=== PATIENT | female | born 1990 | race African-American/Black ===

== ENCOUNTER 2016-09-07 10:22 | Inpatient (IN) ==
[2016-09-07] MEDS ORDERED: ALUM/MAG/SIMETH/LIDO VISC 1:1 30 ML BOTTLE PO STA (11:28)
[2016-09-07] MEDS ORDERED: PANTOPRAZOLE 40 MG VIAL IV STA (11:28)
[2016-09-07] MEDS ORDERED: ONDANSETRON 4 MG/2 ML VIAL IV STA (11:28)
[2016-09-07] MEDS ORDERED: SODIUM CHLORIDE 0.9% 500 ML IV STA (11:28)
--- NOTE | 2016-09-07 11:28 | Emergency Department Note ---
Kamran Torres Meredith, am scribing for, and in the presence of, Ricky An MD 11:11. Juve Torres Charles R, MD, personally performed the services described in this documentation, ascribed by Fabiola Andrew in my presence, and it is both accurate and complete . Arrival - Arrival Chief Complaint: Abdominal / Flank Pain Stated Complaint: CHEST PAINS, STOMACH PAINS, NAUSEA ED Nursing Triage Note: Pt states that she is having upper abd pain and states that she is having chest pain with deep breath - pt states that she has been seen and treated in ER at [facility] for same c/o and had gallbladder US and HiDA scan end of Aug - pt states that she has decreased gallbladder function - pt states that she saw Dr Banegas yesterday and states that she was told that she needed a scope before she had her GB out Mode of Arrival: Ambulatory Limitations: No Limitations Source: Patient, Old Records Reviewed, RN Notes Reviewed Time Seen by Provider: 09/07/16 11:00 - History of Present Illness HPI Narrative: Pt is a 26 y/o black female reporting to the ED with c/o upper abdominal pain and chest pain with deep breaths. She has been seen and treated in the ER at [facility] for the same complaint. Pt had a gallbladder ultrasound and HiDA scan at the end of August. They told her she has decreased gallbladder function. Pt saw Dr. Banegas yesterday and was told she needs to have a scope before she can have her gallbladder taken out. She was also diagnosed with H. Pylori and was put on ABX for 2 weeks. The H.Pylori has resolved. She also has a history. Pt states her pain is worse after meals and when laying flat. She has not taken any OTC medications. Pt has additional history of HTN. Onset (ago): day(s) Date of Last Menstrual Period: 3 weeks Allergies/Adverse Reactions: Allergies Allergy/AdvReac Type Severity Reaction Status Date / Time Penicillins Allergy Severe ANAPHYLAXIS, Verified 12/24/15 12:03 RASH, ITCHING Home Medications: Home Medications Medication Instructions Recorded Confirmed Type Labetalol Tab [Trandate Tab] 100 mg PO BID 12/24/15 09/07/16 History Review of System - Review of System 12 point system: reviewed and no additional remarkable complaints except as stated - Review of System Cardiovascular: Present: as per HPI, chest pain (with deep breath) Gastrointestinal: Present: as per HPI, abdominal pain Medical,Surgical,& Family Hx - Medical History Cardio: History of: Hypertension Neurology: No history of: Seizures HEENT: History of: HEENT Problems (TROUBLE BREATHING FOR 1 MONTH) Respiratory: History of: Respiratory Problems (PT STATES TROUBLE BREATHING.) Musculoskeletal: History of: Musculoskeletal Problems Reproductive: History of: Complication (MISCARRIAGE) - Surgical History Reproductive Surgeries: Surgical HX of;: Breast Surgery (Bilateral reduction), Dilation and Curettage Orthopedic Surgeries: Surgical HX of;: Orthopedic Surgery (LEFT LEG TIBIA AND FIBIA SX 2012) - Family History Family History: Reports;: Family Cancer (Father (stomach); G'father (prostate)) , Family Diabetes, Family Heart Disease (G'father), Family Hypertension, Family Stroke (mother) - Social History Smoking Status: Never smoker Frequency of Alcohol Use: None Type of Drug Use: None Exam Vital Signs: Vital Signs Temperature 98.1 F 09/07/16 10:42 Pulse Rate 68 09/07/16 10:42 Respiratory Rate 20 09/07/16 10:42 Blood Pressure 124/94 09/07/16 10:42 O2 Sat by Pulse Oximetry 97 09/07/16 10:42 - General General appearance: alert, in no apparent distress - Head Head exam: Present: atraumatic, normocephalic - Eye Eye exam: Present: normal appearance, PERRL, EOMI - ENT ENT exam: Present: mucous membranes moist, normal external ear exam - Neck Neck exam: Present: full ROM, trachea midline. Absent: tenderness, meningismus , lymphadenopathy, thyromegaly - Chest Chest inspection: Present: symmetric chest wall rise. Absent: tenderness, rash - Respiratory Respiratory exam: Present: normal lung sounds bilaterally. Absent: respiratory distress - Cardiovascular Cardiovascular exam: Present: regular rate, normal rhythm, normal heart sounds. Absent: murmur, rubs, gallop - Abdominal Exam Abdominal exam: Present: soft, tenderness (epigastric), normal bowel sounds. Absent: distention - Extremities Exam Extremities exam: Present: full ROM, normal capillary refill. Absent: tenderness, pedal edema, calf tenderness - Back Exam Back exam: Present: full ROM. Absent: tenderness - Neurological Exam Neurological exam: Present: alert, oriented X3, CN II-XII intact. Absent: motor sensory deficit - Psychiatric Psychiatric exam: Present: normal affect, normal mood - Skin Skin exam: Present: warm, dry, intact, normal color Course - Consultations Consultation #1: Consult to general surgery for the CT findings he said to admit to the hospitalist service and consult him and possibly CUSTOMER SERVICE DISPATCHER for differentiate between appendicitis and PID Time: 14:43 Results - Labs CBC & BMP: 09/07/16 11:41 09/07/16 11:41 Lab Results: I have reviewed the patients labs Labs: Laboratory Tests 09/07/16 11:41 WBC 4.3 RBC 4.64 Hgb 13.9 Hct 40.4 Plt Count 265 Laboratory Tests 09/07/16 11:41 Urine Test Negative Laboratory Tests 09/07/16 11:41 Urine pH 6.0 Ur Specific [place] 1.017 Urine Nitrate Positive H Urine Urobilinogen < 2.0 H Urine RBC <1 Urine WBC 1 Urine Bacteria Moderate Hyaline Casts 1 Urine Mucus Few Laboratory Tests 09/07/16 11:41 Sodium 142 Potassium 4.0 Chloride 109 H Carbon Dioxide 24 BUN 6 L Creatinine 0.60 Total Bilirubin 1.30 H Troponin I < 0.015 Globulin 3.7 H Albumin/Globulin Ratio 0.9 L - Diagnostic Findings Procedure: Abdominal x-ray: report reviewed by me (Negative bowel gas pattern. ) , CT Abdomen and Pelvis: report reviewed by me ( Trace amount of inflammation of the lower right paracolic gutter lateral to the cecum and tiny amount of fluid in alexa cul-de-sac noted. Subcentimeter right lower quadrant mesenteric lymph nodes present as well. However, the appendix is normal by CT. Favor PID although differential included typhilitis, focal colitis, mesenteric adenitis, or very early acute appendicitis. ) Disposition Clinical Impression: Abdominal pain, UTI (urinary tract infection), GERD (gastroesophageal reflux disease), PID (acute pelvic inflammatory disease), Pelvic pain, Early appendicitis Case discussed with: patient Condition: Stable Time of Disposition: 14:44
[2016-09-07] MEDS ORDERED: PANTOPRAZOLE 40 MG VIAL IV ONE (11:48)
[2016-09-07] MEDS ORDERED: ALUM/MAG/SIMETH/LIDO VISC 1:1 30 ML BOTTLE PO ONE (11:48)
[2016-09-07] MEDS ORDERED: ONDANSETRON 4 MG/2 ML VIAL ONE (11:48)
[2016-09-07 11:55] LABS: Basophils % 0.5 % (0.0-0.8); Eosinophils % 0.2 % (0.00-10.9); Hematocrit 40.4 VOL% (35.7-47.0); Hemoglobin 13.9 GM/DL (12.0-16.0); Immature Granulocytes % 0.2 %; Immature Granulocytes Absolute 0.01 #; Lymphocytes # 2.1 10*3/uL (1.4-4.0); Lymphocytes % 49.1 % (21.3-54.2); Mean Corpuscular HGB Conc 34.4 GM/DL (32-36); Mean Corpuscular Hemoglobin 30 PG (27-34); Mean Corpuscular Volume 87.1 FL (87-102); Mean Platelet Volume 10.7 FL (9.6-12.0); Monocytes # 0.3 10*3/uL (0.11-0.8); Monocytes % 7.7 % (1.7-12.7); Neutrophils # 1.8 10*3/uL (1.4-7.4); Neutrophils % 42.3 % (38.7-73.9); Platelet Count 265 T/CUMM (130-400); Red Blood Count 4.64 MC/CUMM (3.8-5.5); Red Cell Distribution Width 11.9 % (9.3-17.3); White Blood Count 4.3 T/CUMM (4-12)
[2016-09-07 12:17] LABS: Apearance,Urine Slightly Hazy (Clear); Bacteria,Urine Moderate /HPF (Few); Bilirubin,Urine Negative (Negative); Blood, Urine Negative (Negative); Glucose,Urine (UA) Negative (Negative); Hyaline Casts,Urine 1 /LPF (0-3); Ketones,Urine Negative (Negative); Mucus,Urine Few /LPF (Occasional); Nitrite,Urine Positive (Negative); Protein,Urine Negative; RBC,Urine <1 /HPF (0-4); Squamous Epithelial Cell,Urine Occasional /HPF (0-10); Urine Color Yellow (Yellow); Urine Specific Gravity 1.017 (1.001-1.035); Urine Urobilinogen < 2.0 EU/DL (0.2-1.0); WBC,Urine 1 /HPF (0-6)
[2016-09-07 12:24] LABS: Alanine Aminotransferase 19 U/L (13-56); Albumin 3.5 G/DL (3.4-5.0); Alkaline Phosphatase 57 U/L (45-117); Amylase 53 U/L (25-115); Aspartate Amino Transferase 16 U/L (0-37); Blood Urea Nitrogen 6 MG/DL (7-18); Calcium 8.7 MG/DL (8.5-10.1); Glucose 85 MG/DL (74-106); Magnesium 1.8 MG/DL (1.8-2.4); Osmolality,Calculated 279.1 MOS/KG (273-304); Sodium 142 MMOL/L (136-145); Total Protein 7.2 G/DL (6.4-8.3); Troponin I Only < 0.015 NG/ML (0.00-0.045)
[2016-09-07] MEDS ORDERED: LEVOFLOXACIN INJ 500 MG in PREMIX 1 EACH IV STA (12:26)
--- NOTE | 2016-09-07 12:38 | CT Report ---
CT abdomen pelvis wo con Indication: Pelvic and abdominal pain. CT ABDOMEN AND PELVIS WITHOUT CONTRAST DLP: 522 mGy*cm Comparison: None. Technique: Axial noncontrast CT images of the abdomen and pelvis were obtained. Abdomen: No urolithiasis. No urinary obstruction. Unenhanced kidneys appear unremarkable. Unenhanced liver, spleen, gallbladder, pancreas and adrenal glands are within normal limits. Heart size is normal. Lung bases are clear. No bowel obstruction. Pelvis: Minimal amount of inflammation is present in the lower right paracolic gutter adjacent to the cecum. The appendix is gas-filled, normal in size, without inflammation present. Subcentimeter right lower quadrant mesenteric lymph nodes are identified. Uterus is unremarkable by CT. Urinary bladder is contracted. Small amount of free fluid in the cul-de-sac noted. Rectosigmoid colon appears unremarkable. No bone lesions. Impression: 1. Trace amount of inflammation of the lower right paracolic gutter lateral to the cecum and a tiny amount of fluid in the cul-de-sac noted. Subcentimeter right lower quadrant mesenteric lymph nodes are present as well. However, the appendix is normal by CT. Favor PID, although differential includes typhlitis, focal colitis, mesenteric adenitis, or very early acute appendicitis. PROCEDURE INTERPRETED AT [facility] DEPARTMENT OF RADIOLOGY Final Report Signed by: Devin Grace M.D.
--- NOTE | 2016-09-07 12:39 | XRay Report ---
XR abdomen 2V Indication: Abdominal pain. Abdomen 2 views: No small bowel dilatation. Normal amount of stool and gas projects over the colon, without dilatation. No evidence of free air. No abnormal calcifications or masses. Impression: Negative bowel gas pattern. PROCEDURE INTERPRETED AT [facility] DEPARTMENT OF RADIOLOGY Final Report Signed by: Devin Grace M.D.
[2016-09-07] MEDS ORDERED: LEVOFLOXACIN INJ 100 ML IV ONE (13:20)
[2016-09-07] MEDS ORDERED: AZITHROMYCIN 250 MG TABLET PO STA (14:42)
[2016-09-07] MEDS ORDERED: metroNIDAZOLE 500 MG TABLET PO STA (14:42)
[2016-09-07] MEDS ORDERED: KETOROLAC 30 MG/1 ML VIAL IV STA (14:56)
[2016-09-07] MEDS ORDERED: metroNIDAZOLE 500 MG TABLET ONE (14:59)
[2016-09-07] MEDS ORDERED: AZITHROMYCIN 250 MG TABLET ONE (14:59)
[2016-09-07] MEDS ORDERED: KETOROLAC 30 MG/1 ML VIAL ONE (14:59)
--- NOTE | 2016-09-07 16:16 | Hospitalist History & Physical ---
Addendum entered and electronically signed by Branden Yoder MD 09/07/16 15:40: I evaluated this patient and completed independent history and physical examination. I coordinated care with SATYA Hugo. I agree with the documentation that she provides below. Bimanual pelvic examination reveals right lower quadrant tenderness without cervical motion tenderness or ovarian mass. We will consult the tobacco stripper hand and general surgeon. I am going to start the patient on Flagyl and Ancef. Differential diagnosis includes subacute appendicitis and inflammatory bowel disease. There are no indications for surgery at this time. Original Note: Assessment and Plan (1) Abdominal pain Status: Acute Assessment and plan: We will admit for medical management and consult Surgery for evaluation. Continue IVF and maitian NPO status. Will initiate VTE prophylaxis. Current Visit: Yes (2) HTN (hypertension) Status: Acute Assessment and plan: Will hold PO antihypertensive agents, will give IV agents to control BP. Current Visit: Yes History of Present Illness Chief complaint: "abdmonial pain History of present illness: This is a 26 year-old -English female that presents to the ED with a chief compliant of abdominal pain. She reports these symptoms as chronic in nature; states" I have had pains in my stomach for the last couple of months". She reports that the symptoms increased as the months progressed. She reports her last menstrual period on last month. She reports nausea and vomiting for the last 3 days and reports her last po intake on yesterday; in which she was not able to tolerate. Home Medications Medication Instructions Recorded Confirmed Type Labetalol Tab [Trandate Tab] 100 mg PO BID 12/24/15 09/07/16 History Allergies Allergy/AdvReac Type Severity Reaction Status Date / Time Penicillins Allergy Severe ANAPHYLAXIS, Verified 12/24/15 12:03 RASH, ITCHING Medical,Surgical,& Family Hx - Medical History Cardio: History of: Hypertension Neurology: No history of: Seizures HEENT: History of: HEENT Problems (TROUBLE BREATHING FOR 1 MONTH) Respiratory: History of: Respiratory Problems (PT STATES TROUBLE BREATHING.) Musculoskeletal: History of: Musculoskeletal Problems Reproductive: History of: Complication (MISCARRIAGE) - Surgical History Reproductive Surgeries: Surgical HX of;: Breast Surgery (Bilateral reduction), Dilation and Curettage Orthopedic Surgeries: Surgical HX of;: Orthopedic Surgery (LEFT LEG TIBIA AND FIBIA SX 2012) - Family History Family History: Reports;: Family Cancer (Father (stomach); G'father (prostate)) , Family Diabetes, Family Heart Disease (G'father), Family Hypertension, Family Stroke (mother) - Social History Smoking Status: Never smoker Frequency of Alcohol Use: None Type of Drug Use: None Exam - Constitutional Vitals: Period Temp Pulse Resp BP Sys/Allison Pulse Ox Last 24 Hr 98.1 F 68 20 124/94 97 General appearance: normal weight, no acute distress - Head Head exam: Present: normal inspection, normocephalic, atraumatic. Absent: hematoma, laceration - Eye Eye exam: Present: EOMI, conjunctival injection. Absent: periorbital swelling, scleral icterus Pupils: Present: MATT, normal accommodation - ENT ENT exam: Present: normal exam - Neck Neck exam: Present: normal inspection. Absent: lymphadenopathy, meningismus, thyromegaly - Respiratory Respiratory exam: Present: clear to auscultation bilaterally. Absent: rales, rhonchi, stridor - Cardiovascular Cardiovascular exam: Present: regular rate and rhythm. Absent: gallop, rubs, systolic murmur, tachycardia - GI/Abdominal GI/Abdominal exam: Present: guarding, hypoactive bowel sounds, tenderness - Extremities Exam Extremities exam: Present: normal inspection, full ROM - Back Exam Back exam: Present: normal inspection - Neurological Exam Neurological exam: Present: alert, oriented X3, CN II-XII intact - Skin Skin exam: Present: normal color, warm, dry Results - Labs CBC & BMP: 09/07/16 11:41 09/07/16 11:41 Lab Results: I have reviewed the past 24 hour labs Quality Measures - VTE Deep Vein Thrombosis/Pulmonary Embolism Present on Admission: No
[2016-09-07] MEDS ORDERED: MORPHINE 2 MG/1 ML SYRINGE IV PRN (16:40)
[2016-09-07] MEDS ORDERED: ACETAMINOPHEN 325 MG TABLET PO PRN (16:40)
[2016-09-07] MEDS ORDERED: ONDANSETRON 4 MG/2 ML VIAL IV PRN (16:40)
[2016-09-07] MEDS: SODIUM CHLORIDE 0.9% 1,000 ML IV SCH (17:10)
[2016-09-07] MEDS: MEROPENEM 500 MG in SODIUM CHLORIDE 0.9% 100 ML IV SCH (17:18)
--- NOTE | 2016-09-07 18:15 | Gastrointestinal Consult Note ---
Assessment and Plan (1) Periumbilical pain Status: Acute Assessment and plan: This pain that the patient has had over the last 1 year is somewhat bizarre. It is not classically localizing to any one particular area which makes me believe that it is secondary to spasm in the bowel--she does not have an elevation in white blood cell count but she also does not have diarrhea or constipation which would lend itself to diagnosis of irritable bowel syndrome. She does have some reflux symptoms and we will treat these with acid blocking medications but I suspect this is not the cause for her periumbilical pain nor his gallbladder typically referred into this area. CT scan fails to show any thickening around the appendix and the white count is within normal limits. She is relatively young for ischemic bowel. Given the distribution of the pain and the fact that there are lymph nodes around the right lower quadrant as well as inflammation possibly in the pericolic gutter near the ascending colon I will perform colonoscopy tomorrow to further identify any colitis/Crohn's that might be present. I do note again the patient does not have diarrhea but does feel better after passage of stool. The patient does not have cervical motion tenderness and so this is likely not pelvic inflammatory disease although this still remains in the differential. Current Visit: Yes (2) Abnormal CT scan, gastrointestinal tract Status: Acute Assessment and plan: As mentioned above the patient does have subcentimeter lymph node enlargement on the right side of the colon with a slight amount of fluid around the colon in this region as well. This is concerning for inflammatory bowel disease versus colitis, we will proceed with colonoscopy tomorrow to evaluate further. Risks and benefits of the procedure were discussed with the patient and include but are not limited to: Bleeding, infection, perforation, cardiac and pulmonary compromise. Current Visit: Yes (3) GERD (gastroesophageal reflux disease) Status: Acute Assessment and plan: This is been going on for several years and is likely not related to the above symptoms. Current Visit: Yes History of Present Illness Chief complaint: Nausea with reflux symptoms, periumbilical pain and abnormal CT scan History of present illness: Ms. Andrea is a 26 year old female who has a history of pain that has been in random places in her abdomen over the last 1 year-- this is been progressive over that period and has gotten up to a 10 out of 10 in intensity over the last 24 hours. This is been fairly extensively worked up mostly at [facility], to Dr. Banegas office. She has been diagnosed with H. pylori in the past and this has been treated with antibiotics for 2 weeks and now she is negative state. She has not had upper endoscopy nor colonoscopy but has had a history of gallbladder ultrasound and HIDA scan which apparently showed decreased gallbladder function. Interestingly, a CT scan this admission does not show inflammation around the gallbladder or the appendix but does show fluid in the right pericolic gutter and some sub-centimeter lymph node enlargement in this RLQ region as well. Her white count is not elevated. She herself points out that her pain is mostly concentrated in the suprapubic periumbilical region but can move from side to side in the lower quadrants or even up into the epigastric region it is typically not in the right upper quadrant and does not move to the shoulder or up into the back. She does not correlate it with any food. She does not have diarrhea or constipation and services technically not irritable bowel syndrome. She was taken to vaginal examination by Dr. Yoder today and does not have classic cervical motion tenderness. She does have some reflux symptoms and heartburn with some substernal burning indicative of underlying GERD. The pain lasts for minutes typically and is partially relieved with bowel movements at times. Is sharp and stabbing and rated as 10 out of 10 intensity at times. It is associated with nausea. Her white blood cell count is only 4.3 on admission with a normal hematocrit and normal renal function. She is nitrate positive and may have a urinary tract infection. Home Medications Medication Instructions Recorded Confirmed Type Labetalol Tab [Trandate Tab] 100 mg PO BID 12/24/15 09/07/16 History Allergies Allergy/AdvReac Type Severity Reaction Status Date / Time Penicillins Allergy Severe ANAPHYLAXIS, Verified 12/24/15 12:03 RASH, ITCHING Medical,Surgical,& Family Hx - Medical History Cardio: History of: Hypertension Neurology: No history of: Seizures HEENT: History of: HEENT Problems (TROUBLE BREATHING FOR 1 MONTH) Respiratory: History of: Pneumonia, Respiratory Problems (PT STATES TROUBLE BREATHING.) Musculoskeletal: History of: Musculoskeletal Problems Reproductive: History of: Complication (MISCARRIAGE) - Surgical History HEENT Surgeries: Surgical HX of: Tonsilectomy & Adenoidectomy Reproductive Surgeries: Surgical HX of;: Breast Surgery (Bilateral reduction), Dilation and Curettage Orthopedic Surgeries: Surgical HX of;: Orthopedic Surgery (LEFT LEG TIBIA AND FIBIA SX 2013) - Family History Family History: Reports;: Family Cancer (Father (stomach); G'father (prostate)) , Family Diabetes, Family Heart Disease (G'father), Family Hypertension, Family Stroke (mother) - Social History Smoking Status: Never smoker Frequency of Alcohol Use: None Type of Drug Use: None Review of systems: Constitutional: Denies fever, chills, but positive for nausea, without vomiting Eyes: Denies dry eyes, and scleral icterus HENT: Denies headaches Cardiovascular: Denies acute chest pain and claudication Respiratory: Denies shortness of breath, wheezing, and difficulty breathing, denies cough Gastrointestinal: As noted in the HPI Genitourinary: Denies dysuria and hematuria Neurologic: Denies vision loss, and loss of sensation Musculoskeletal: Denies joint swelling, joint stiffness, and muscular weakness Psychiatric: Denies depression and jay symptoms Heme-Lymph: Denies easy bruising, lymph node enlargement or tenderness, night sweats, excessive bleeding Allergies-immunologic: Denies pruritus and rhinorrhea Exam - Constitutional Vitals: Period Temp Pulse Resp BP Sys/Allison Pulse Ox Last 24 Hr 70-72 16-20 117-132/79-87 100-100 Exam: Constitutional: Well-developed, well-nourished, alert, and in no acute distress Head and face: Head: Normocephalic atraumatic Eyes: Conjunctiva without injection, no gross scleral icterus, pupils equal and round bilaterally Ears: Intact to conversation in both ears Nose: External appearance is normal, nares patent Mouth: Oral mucous membranes moist without erythema dentition noted to be without erosion Neck: Normal appearance, no masses or tenderness, trachea midline Thyroid: Gland midline and appropriate size for age Respiratory: Normal respiratory effort, clear to auscultation without wheezes, rhonchi or rales Cardiovascular: Regular rate and rhythm, normal S1, S2, the exam is without rubs, murmurs or gallops. Gastrointestinal: Very mildly tender to palpation in the periumbilical/ infraumbilical region, normal active bowel sounds, tone normal without rigidity or guarding, no masses present, no hepatomegaly, no spleen tip felt. Rectal exam showed good tone no external fissures or fistulas stool was present brown and guaiac negative with small internal hemorrhoids noted on palpation. Lymphatic: Neck without adenopathy, axilla without lymphadenopathy present Musculoskeletal: Right and left lower extremities without evidence of edema Skin and subcutaneous tissue: No rashes or ulcerations noted, normal skin turgor, digits and nails without clubbing/cyanosis/deformities. Neurologic: The patient is grossly oriented to person place and time, cranial nerves show tongue movements are normal with normal tongue extrusion midline, light touch sensation is intact. Psychiatric: No hallucinations or delusions are present, does not appear depressed Results - Labs CBC & BMP: 09/07/16 11:41 09/07/16 11:41 Quality Measures - VTE Deep Vein Thrombosis/Pulmonary Embolism Present on Admission: No
--- NOTE | 2016-09-07 18:29 | General Surgery Consult Note ---
Assessment and Plan - Time spent with patient Time spent with patient: Less than 30 minutes History of Present Illness Chief complaint: Abdominal pain lower abdomen. History of present illness: Ms. Andrea is a 26 year old female -[place] female who gives a history of abdominal pain recurring over the last year. She has been seen primarily in [place] where they have done a scope saying that she had H. pylori and then have worked her up several times for this complaint of this abdominal pain. Dr. Banegas is seen her and did a ultrasound gallbladder that was normal and a HIDA scan with a 32% ejection fraction. She is unable to give us any fatty food intolerance and the onset of the pain is really inconsistent sort of coming and going. Cannot pin it down to anything in particular and and she does not notice whether or not she gets relief with bowel movements. Patient gives a history of occasional urinary tract infection but denies any pelvic infections in the past. While here in the emergency room she came down here rather than go back to show where her workup has been undergoing. That here in this emergency room they for some reason went ahead and got a CT scan abdomen and pelvis which basically showed the appendix to be normal and some changes to suggest possible pelvic inflammatory disease. At this point I do not think that she has significant enough Gallbladder disease to consider taking the gallbladder out. Also do not see anything from general surgery standpoint for surgery but she since her appendix appears to be normal. I think it be higgins to get MEDICAL CLAIMS PROCESSOR involved and see if they think there is some pelvic problems at may be her complaint of pain. We could be looking at a endometriosis process with his recurring chronic pain. Home Medications Medication Instructions Recorded Confirmed Type Labetalol Tab [Trandate Tab] 100 mg PO BID 12/24/15 09/07/16 History Allergies Allergy/AdvReac Type Severity Reaction Status Date / Time Penicillins Allergy Severe ANAPHYLAXIS, Verified 12/24/15 12:03 RASH, ITCHING Medical,Surgical,& Family Hx - Medical History Cardio: History of: Hypertension Neurology: No history of: Seizures HEENT: History of: HEENT Problems (TROUBLE BREATHING FOR 1 MONTH) Respiratory: History of: Pneumonia, Respiratory Problems (PT STATES TROUBLE BREATHING.) Musculoskeletal: History of: Musculoskeletal Problems Reproductive: History of: Complication (MISCARRIAGE) - Surgical History HEENT Surgeries: Surgical HX of: Tonsilectomy & Adenoidectomy Reproductive Surgeries: Surgical HX of;: Breast Surgery (Bilateral reduction), Dilation and Curettage Orthopedic Surgeries: Surgical HX of;: Orthopedic Surgery (LEFT LEG TIBIA AND FIBIA SX 2012) - Family History Family History: Reports;: Family Cancer (Father (stomach); G'father (prostate)) , Family Diabetes, Family Heart Disease (G'father), Family Hypertension, Family Stroke (mother) - Social History Smoking Status: Never smoker Frequency of Alcohol Use: None Type of Drug Use: None 12 point system: reviewed and no additional remarkable complaints except as stated Exam - Constitutional Vitals: Period Temp Pulse Resp BP Sys/Allison Pulse Ox Last 24 Hr 70-72 16-20 117-132/79-87 100-100 General appearance: no acute distress - Head Head exam: Present: normal inspection - ENT ENT exam: Present: normal exam - Neck Neck exam: Present: normal inspection - Respiratory Respiratory exam: Present: clear to auscultation bilaterally - Cardiovascular Cardiovascular exam: Present: RRR - GI/Abdominal GI/Abdominal exam: Present: hypoactive bowel sounds, tenderness (Primarily subjective seems to be towards her right lower quadrant area.), soft. Absent: distended, guarding - Extremities Exam Extremities exam: Present: normal inspection - Back Exam Back exam: Present: normal inspection - Neurological Exam Neurological exam: Present: alert, oriented X3, CN II-XII intact Quality Measures - VTE Deep Vein Thrombosis/Pulmonary Embolism Present on Admission: No Results - Labs CBC & BMP: 09/07/16 11:41 09/07/16 11:41 Lab Results: I have reviewed the past 24 hour labs
[2016-09-07] MEDS ORDERED: POLYETHYLENE GLYCOL POWDER 255 GM BOTTLE PO ONE (18:30)
[2016-09-07] MEDS: BISACODYL 5 MG TABLET PO SCH (18:41)
[2016-09-07] MEDS: PANTOPRAZOLE 40 MG TABLET PO SCH (18:41)
[2016-09-07] MEDS: metroNIDAZOLE INJ 500 MG in PREMIX 1 EACH IV SCH (18:41)
[2016-09-07] MEDS ORDERED: ENOXAPARIN 40 MG/0.4 ML SYRINGE SUBCUT SCH (21:00)
[2016-09-08] MEDS: metroNIDAZOLE INJ 500 MG in PREMIX 1 EACH IV SCH ×4 (00:05→18:59)
[2016-09-08] MEDS: SODIUM CHLORIDE 0.9% 1,000 ML IV SCH ×3 (02:05→20:17)
[2016-09-08] MEDS: BISACODYL 5 MG TABLET PO SCH ×2 (02:31→04:19)
[2016-09-08] MEDS: MEROPENEM 500 MG in SODIUM CHLORIDE 0.9% 100 ML IV SCH ×2 (05:09→17:53)
[2016-09-08] MEDS: PANTOPRAZOLE 40 MG TABLET PO SCH ×2 (06:02→18:44)
[2016-09-08 06:05] LABS: Basophils % 0.2 % (0.0-0.8); Eosinophils % 0.2 % (0.00-10.9); Hematocrit 37.5 VOL% (35.7-47.0); Hemoglobin 12.4 GM/DL (12.0-16.0); Lymphocytes % 48.7 % (21.3-54.2); Mean Corpuscular HGB Conc 33.1 GM/DL (32-36); Mean Corpuscular Hemoglobin 30 PG (27-34); Mean Corpuscular Volume 89.5 FL (87-102); Mean Platelet Volume 10.6 FL (9.6-12.0); Monocytes # 0.3 10*3/uL (0.11-0.8); Monocytes % 8.2 % (1.7-12.7); Neutrophils # 1.8 10*3/uL (1.4-7.4); Neutrophils % 42.7 % (38.7-73.9); Platelet Count 233 T/CUMM (130-400); Red Blood Count 4.19 MC/CUMM (3.8-5.5); Red Cell Distribution Width 11.9 % (9.3-17.3); White Blood Count 4.1 T/CUMM (4-12)
[2016-09-08 06:47] LABS: Calcium 8.1 MG/DL (8.5-10.1); Osmolality,Calculated 286.6 MOS/KG (273-304); Potassium 3.9 MMOL/L (3.5-5.1); Thyroid Stimulating Hormone 1.61 uIU/ml (0.358-3.74)
[2016-09-08] MEDS ORDERED: PROPOFOL 200 MG/20 ML VIAL IV ONE (09:43)
[2016-09-08] MEDS ORDERED: LIDOCAINE 2% 5 ML VIAL ONE (09:43)
--- NOTE | 2016-09-08 10:11 | Operative Note ---
Date of procedure: 09/08/16 Pre-op diagnosis: Periumbilical pain, abnormal CT scan but no diarrhea or constipation Post-op diagnosis: other (Mild erythema in a patchy distribution through the colon--likely prep artifact but may represent underlying colitis, biopsies pending. Patient did have some lymphoid hyperplasia in her terminal ileum which was biopsied to ensure this was not Crohn's. It is possible that this could be a source for the lymph node enlargement if she is getting chronic small bowel overgrowth of bacteria.) Procedure: PROCEDURE: Colonoscopy with cold biopsy for pathology REFERRING PHYSICIAN: Lobito Cuba MD INDICATIONS: Abnormal CT scan with lymph nodes enlarged in the right lower quadrant and pericolic fluid, periumbilical pain but also widespread pain in other areas, nausea and vomiting. The prior H&P was reviewed and interrim changes are as noted: No change in GI consultation yesterday ENDOSCOPIST: Edward Claros MD ENDOSCOPE: [employer] Video 100 System colonoscope COLON PREPARATION: 238 gm of PEG containing laxative and 1.9 liters of gatoraid/sports drink and dulcolax 15 mg q8 hours x 3 ASA CLASS: 2 EXAM: CV: regular rate and rhythm Respiratory: Clear without wheezes Abdominal: active bowel sounds Rectal: Good tone, no fissures or fistulas MEDICATION: Per nursing anesthesia protocol, see their notes PROCEDURE: After discussion of the potential risks and benefits of colonoscopy, the informed consent was obtained, from patient or health care surrogate. The patient was then placed in the left lateral decubitus position where sedation was achieved as noted above. Rectal examination was followed by insertion of the colonoscope. The colonoscope was passed under direct visualization to the cecum. Advancement was facilitated by insertion/withdrawl techniques, abdominal pressure and patient positioning. Once the cecal pole was reached, slow withdrawal was performed with the findings as noted below. The patient tolerated the procedure well and without complication. QUALITY OF PREP: Excellent WITHDRAWL TIME: 7 minutes 3 seconds BIOPSIES: Terminal ileum/cecum, ascending/descending, sigmoid PHOTOGRAPHS: Obtained FINDINGS: The musoca appeared with mild erythema that may been prep artifact in the following regions: rectum, sigmoid colon, descending colon, splenic flexure, transverse colon, hepatic flexure, ascending colon and cecum. Position within the cecum was confirmed by ileocecal valve, appendiceal oriface , and the convergence of folds (crows foot). No nura colitis, polyp, mass or AVM was noted throughout the colon. The terminal ileum appeared to have some lymphoid hyperplasia and one could theorize that the reactive lymph nodes may be secondary to bacteria in this region, biopsies were taken as were biopsies from the remaining colon to look for microscopic and collagenous colitis. No diverticulosis noted. IMPRESSION: Mild erythema in a patchy distribution through the colon--likely prep artifact but may represent underlying colitis, biopsies pending. Patient did have some lymphoid hyperplasia in her terminal ileum which was biopsied to ensure this was not Crohn's. It is possible that this could be a source for the lymph node enlargement if she is getting chronic small bowel overgrowth of bacteria. RECOMMENDATIONS: High fiber diet The patient may benefit from use of Levsin 0.125 mg p.o. every 6 hours routinely for cramping Repeat colonosocopy will be in 13 years when the patient had stage 50 Citrucel 1 tablespoon in 12 oz juice BID: 1 bottle: :11 She may wish to consider probiotics, we can also consider Ultram for the pain 50 mg every 6 hours as needed If colitis or ileitis found on pathology, will treat depending on type. Follow up by phone for biopsy results in 1-2 weeks by phone Edward Claros MD COPY TO: Lobito Cuba MD Anesthesia: MAC Surgeon / Physician: Edward Claros Estimated blood loss: minimal Specimens: other (cecum/ascending/descending/sigmoid) Condition: stable Disposition: post procedure unit ([facility]I. Suite) Results - Labs CBC & BMP: 09/08/16 05:53 09/08/16 05:53 Discharge Plan - Discharge Medications No Action Labetalol Tab [Trandate Tab] 100 mg PO BID - Follow Up or Referral - Forms/Instructions
--- NOTE | 2016-09-08 10:17 | Gastrointestinal Progress Note ---
Assessment and Plan (1) Periumbilical pain Status: Acute Assessment and plan: This pain that the patient has had over the last 1 year is somewhat bizarre. It is not classically localizing to any one particular area which makes me believe that it is secondary to spasm in the bowel--she does not have an elevation in white blood cell count but she also does not have diarrhea or constipation which would lend itself to diagnosis of irritable bowel syndrome. She does have some reflux symptoms and we will treat these with acid blocking medications but I suspect this is not the cause for her periumbilical pain nor his gallbladder typically referred into this area. CT scan fails to show any thickening around the appendix and the white count is within normal limits. She is relatively young for ischemic bowel. Given the distribution of the pain and the fact that there are lymph nodes around the right lower quadrant as well as inflammation possibly in the pericolic gutter near the ascending colon I will perform colonoscopy tomorrow to further identify any colitis/Crohn's that might be present. I do note again the patient does not have diarrhea but does feel better after passage of stool. The patient does not have cervical motion tenderness and so this is likely not pelvic inflammatory disease although this still remains in the differential. 09/08/16--colonoscopy demonstrated the following: Mild erythema in a patchy distribution through the colon--likely prep artifact, but may represent underlying colitis, biopsies pending. Patient did have some lymphoid hyperplasia in her terminal ileum which was biopsied to ensure this was not Crohn's. It is possible that this could be a source for the lymph node enlargement if she is getting chronic small bowel overgrowth of bacteria. I do note that even after being started on high-powered antibiotics her white count is virtually identical to what it was yesterday. Given the findings on the colonoscopy I have put her on a low lactose diet, started her on some Bacid as a probiotic and I am writing her for some antispasmodic medication in the form of Levsin 0.125 mg every 6 hours scheduled. We will see if this helps out with the pain. I would steer clear of use of narcotics if at all possible they tend not to be helpful for chronic pain and can be addicting. Current Visit: Yes (2) Abnormal CT scan, gastrointestinal tract Status: Acute Assessment and plan: As mentioned above the patient does have subcentimeter lymph node enlargement on the right side of the colon with a slight amount of fluid around the colon in this region as well. This is concerning for inflammatory bowel disease versus colitis, we will proceed with colonoscopy tomorrow to evaluate further. Risks and benefits of the procedure were discussed with the patient and include but are not limited to: Bleeding, infection, perforation, cardiac and pulmonary compromise. 09/08/16--no gross evidence of Crohn's on today's colonoscopy. This may represent reactive inflammation from small bowel overgrowth of bacteria as evidenced by the terminal ileum lymphoid hyperplasia. She is currently getting antibiotics and her white count is not changed. I am trying some symptomatic medication in the form of probiotics and Levsin to see if this alters her pain threshold. Biopsies are pending. Current Visit: Yes (3) GERD (gastroesophageal reflux disease) Status: Acute Assessment and plan: This is been going on for several years and is likely not related to the above symptoms. 09/08/16--Protonix continues for reflux symptoms. Current Visit: Yes Gastroenterology - PN: Subj Interval history: Patient states that her pain is approximately a 4 out of 10 in intensity today, improved from yesterday. She did well with prep and is hungry. Exam (Progress Note) - Constitutional Vitals: Period Temp Pulse Resp BP Sys/Allison Pulse Ox Last 24 Hr 97.9 F-98.4 F 62-80 16-20 88-132/50-063 92-100 General appearance: mild distress - Head Head exam: Present: normocephalic - Eye Eye exam: Present: EOMI - Cardiovascular Cardiovascular exam: Present: regular rate and rhythm - GI/Abdominal GI/Abdominal exam: Present: normal bowel sounds, tenderness (Periumbilical), soft. Absent: distended, rebound - Neurological Exam Neurological exam: Present: alert, oriented X3 - Psychiatric Psychiatric exam: Present: normal affect, normal mood - Skin Skin exam: Present: warm Results - Labs CBC & BMP: 09/08/16 05:53 09/08/16 05:53
--- NOTE | 2016-09-08 10:54 | Anesthesia ---
Anesthesia Post OP - Post Ansesthetic Evaluation Patient seen in post op: Yes Resp: within normal limits CV: within normal limits Mental: within normal limits Temp: within normal limits [id number]: within normal limits Nausea and Vomiting: within normal limits Pain: within normal limits
--- NOTE | 2016-09-08 11:26 | General Surgery Progress Note ---
Assessment and Plan - Time spent with patient Time spent with patient: Less than 30 minutes (1) Abdominal pain Status: Acute Assessment and plan: 09/08/2016 Patient has undergone colonoscopy that showed some possible mild colitis. Do not know if this is the etiology for her discomfort that is recurring at this time. With the appendix looking normal on CT I see nothing from a surgical standpoint that we need to do. Certainly ejection fraction is borderline on her gallbladder but I do not detect any symptoms that I can really relate to the gallbladder at this time. I feel this would have to be observed and possibly have a repeat scan a couple months down the road to see what changes take place. Current Visit: Yes Subjective Patient reports: Present: pain is less, afebrile Exam - Constitutional Vitals: Period Temp Pulse Resp BP Sys/Allison Pulse Ox Last 24 Hr 97.9 F-98.4 F 62-80 16-21 88-132/50-063 92-100 General appearance: mild distress - Head Head exam: Present: normal inspection - ENT ENT exam: Present: normal exam - Neck Neck exam: Present: normal inspection - Respiratory Respiratory exam: Present: clear to auscultation bilaterally - Cardiovascular Cardiovascular exam: Present: RRR - GI/Abdominal GI/Abdominal exam: Present: hypoactive bowel sounds, tenderness (Lower right side periumbilical region hypogastric area), soft. Absent: guarding - Extremities Exam Extremities exam: Present: normal inspection - Neurological Exam Neurological exam: Present: alert, oriented X3, CN II-XII intact - Skin Skin exam: Present: normal color, warm, dry Results - Labs CBC & BMP: 09/08/16 05:53 09/08/16 05:53 Lab Results: I have reviewed the past 24 hour labs Quality Measures - VTE Deep Vein Thrombosis/Pulmonary Embolism Present on Admission: No
--- NOTE | 2016-09-08 13:51 | OB/GYN Consult Note ---
Assessment and Plan - Time spent with patient Time spent with patient: Less than 30 minutes (1) Pelvic pain Status: Acute Assessment and plan: The patient a gonorrhea chlamydia was order today via a urine however I do not expect the results to be accurate due to the patient being on antibiotics for the past 24 hours. Also after getting a history doubt that this pain is due to PID, however if the patient does not improve further in the next 24 hours I would consider giving azithromycin 1 gram by mouth 1 dose to treat empirically for gonorrhea. Patient the patient does say that she is feeling better from when she was admitted so if she continues to improve I would not add another antibiotic. I will also order an ultrasound just to look at the uterus and ovaries a little bit better but I do not think that this pain is due to endometriosis either. I will continue to follow. Current Visit: Yes History of Present Illness Chief complaint: abdominal pain History of present illness: Ms. Andrea is a 26 year old female This is a 26-year-old 011 who was admitted 2 days ago for an acute exacerbation abdominal pain. The patient was [facility] has been consult. I was consult due to CT findings of possible endometriosis versus pelvic inflammatory disease. Upon speaking with the patient she has had 1 vaginal delivery 7 years ago and last year she had a miscarriage which didn't require a suction D&C. The patient is not on anything for control and her and her fianc are trying to conceive. Her last menstrual period was on 08/17/2016 and per patient she gets a regular period once a month. She is due to have her period next week . She has no issues with her menstrual cycles and she says they last about 4 days, are not heavy and not painful. The patient has never had an abnormal Pap smear and her last visit to the health department was last year and her patient she was tested for STDs and all was normal including her Pap smear. The patient admits that she has had chlamydia several years ago. She is engaged and does not believe she has had any risk for exposure to any sexual transmitted infections. She denies any vaginal discharge and she also denies any pelvic pain. Her pain is described more in the mid upper abdomen. She's been having this pain for over a year. She gets exacerbations but the one she had 2 days ago was worse than she has ever had. Home Medications Medication Instructions Recorded Confirmed Type Labetalol Tab [Trandate Tab] 100 mg PO BID 12/24/15 09/07/16 History Allergies Allergy/AdvReac Type Severity Reaction Status Date / Time Penicillins Allergy Severe ANAPHYLAXIS, Verified 12/24/15 12:03 RASH, ITCHING Medical,Surgical,& Family Hx - Medical History Cardio: History of: Hypertension Neurology: No history of: Seizures HEENT: History of: HEENT Problems (TROUBLE BREATHING FOR 1 MONTH) Respiratory: History of: Pneumonia, Respiratory Problems (PT STATES TROUBLE BREATHING.) Musculoskeletal: History of: Musculoskeletal Problems Reproductive: History of: Complication (MISCARRIAGE) - Surgical History HEENT Surgeries: Surgical HX of: Tonsilectomy & Adenoidectomy Reproductive Surgeries: Surgical HX of;: Breast Surgery (Bilateral reduction), Dilation and Curettage Orthopedic Surgeries: Surgical HX of;: Orthopedic Surgery (LEFT LEG TIBIA AND FIBIA SX 2012) - Family History Family History: Reports;: Family Cancer (Father (stomach); G'father (prostate)) , Family Diabetes, Family Heart Disease (G'father), Family Hypertension, Family Stroke (mother) - Social History Smoking Status: Never smoker Frequency of Alcohol Use: None Type of Drug Use: None - Constitutional Constitutional: Absent: anorexia - Gastrointestinal Gastrointestinal: Present: abdominal pain, nausea - Genitourinary Genitourinary: Absent: abnormal vaginal bleeding, difficulty urinating, flank pain, hematuria, menorrhagia, 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 discharge 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 - Constitutional Vitals: Vital Signs Temp Pulse Pulse Resp BP Pulse Ox Pulse Ox 09/08/16 11:10 98.4 F 09/08/16 10:39 64 21 113/81 100 09/08/16 10:24 75 17 119/76 100 09/08/16 10:09 68 19 88/59 100 09/08/16 09:10 68 16 107/063 99 09/08/16 07:30 98.4 F 68 20 104/56 98 09/08/16 04:00 98.4 F 80 20 99/50 96 09/08/16 03:47 20 09/08/16 00:00 98.4 F 78 20 93/59 92 L 09/07/16 19:51 97.9 F 62 18 106/56 98 09/07/16 16:40 20 09/07/16 15:30 72 16 132/87 100 09/07/16 15:00 70 16 117/79 100 General appearance: normal weight, no acute distress - Head Head exam: Present: normal inspection - Respiratory Respiratory exam: Absent: accessory muscle use - Breast Menstruation: as per HPI - Cardiovascular Cardiovascular exam: Present: regular rate and rhythm - GI/Abdominal GI/Abdominal exam: Present: soft. Absent: guarding, tenderness, rebound - Extremities Exam Extremities exam: Absent: calf tenderness - Neurological Exam Neurological exam: Present: alert, oriented X3 - Psychiatric Psychiatric exam: Present: normal affect - Skin Skin exam: Present: normal color (a pelvic exam was deferred due to the pt having a colonoscopy a little while ago) Results - Labs CBC & BMP: 09/08/16 05:53 09/08/16 05:53 Lab Results: I have reviewed the past 24 hour labs - Diagnostic Findings Procedure: CT Abdomen and Pelvis: report reviewed by me (i reviewed report)
[2016-09-08] MEDS: HYOSCYAMINE 0.125 MG TABLET PO SCH ×3 (13:56→20:16)
--- NOTE | 2016-09-08 15:15 | Hospitalist Progress Note ---
Assessment and Plan (1) Abdominal pain Status: Acute Assessment and plan: The patient's abdominal discomfort is improving on present regimen. If such improvement continues anticipate discharge home tomorrow. We will await the biopsies obtained at colonoscopy. The patient will follow up with Dr. Claros in the office. Current Visit: Yes Qualifiers: Abdominal location: right lower quadrant Qualified Code(s): R10.31 - Right lower quadrant pain Hospitalist: Subjective Interval history: The patient is resting quietly in her room. Abdominal discomfort is improving. Exam - Constitutional Vitals: Period Temp Pulse Resp BP Sys/Allison Pulse Ox Last 24 Hr 97.9 F-98.4 F 60-80 16-21 88-132/50-063 92-100 General appearance: mild distress - Respiratory Respiratory exam: Present: clear to auscultation bilaterally - Cardiovascular Cardiovascular exam: Present: regular rate and rhythm - GI/Abdominal GI/Abdominal exam: Present: hypoactive bowel sounds. Absent: distended, guarding Results - Labs CBC & BMP: 09/08/16 05:53 09/08/16 05:53 Lab Results: I have reviewed the past 24 hour labs Quality Measures - VTE Deep Vein Thrombosis/Pulmonary Embolism Present on Admission: No
--- NOTE | 2016-09-08 15:39 | Ultrasound Report ---
Exam: US pelvic complete Date: 09/08/2016 1:58 PM Comparison: CT abdomen and pelvis, 09/07/2016 Indication: Generalized pelvic pain Technique:[Initial limited transabdominal scans were obtained. Additional transvaginal scans were obtained. Color flow scans obtained. Ultrasound images were captured and stored.] Findings: The uterus is anteverted in its position and measures 64 x 42 x 43 mm. Endometrial stripe measures 7 mm. Right ovary measures 42 x 29 x 29 mm and contains a 13 x 14 x 12 mm simple appearing cyst. 19 x 19 x 19 mm very hemorrhagic cyst or solid mass. Left ovary measures 27 x 16 x 23 mm and contains small cysts/follicles with the largest measuring 9 mm. Color-flow documented in the ovaries. Moderate free fluid. No adnexal masses. Impression: Nonspecific moderate free fluid in the pelvis with simple appearing bilateral ovarian cysts. Additional 19 mm very hemorrhagic cyst or solid mass in the right ovary. Short-term follow-up pelvic ultrasound after the patient's next menstrual cycle is recommended for further evaluation. PROCEDURE INTERPRETED AT [facility] DEPARTMENT OF RADIOLOGY Final Report Signed by: Dr. Lena Oglesby
[2016-09-09] MEDS: HYOSCYAMINE 0.125 MG TABLET PO SCH ×2 (03:36→08:50)
[2016-09-09] MEDS: SODIUM CHLORIDE 0.9% 1,000 ML IV SCH ×2 (03:53→10:34)
[2016-09-09] MEDS: MEROPENEM 500 MG in SODIUM CHLORIDE 0.9% 100 ML IV SCH (05:21)
[2016-09-09] MEDS: metroNIDAZOLE INJ 500 MG in PREMIX 1 EACH IV SCH ×3 (06:10→12:42)
[2016-09-09] MEDS: PANTOPRAZOLE 40 MG TABLET PO SCH (06:13)
--- NOTE | 2016-09-09 08:05 | OB/GYN Progress Note ---
Assessment and Plan (1) Pelvic pain Status: Acute Assessment and plan: gonorrhea/chlamydia results still pending, urine with GNR and S&S still pending. The pt's pelvic u/s showed a small rt pelvic cyst/mass and some FF . The pt is improving with current treatment. It is difficult to assess what the exact cause of her current exacerbation of abdominal/pelvic pain due to multiple findings. At this time due to the pt improving I will sign off and have the pt follow up with me in the office with a repeat pelvic u/s in 4 to 6 weeks. The pt was made aware of this. 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 I reviewed the results of the pelvic u /s with the patient this morning Exam FREIGHT RECEIVER - Constitutional Vitals: Vital Signs Temp Pulse Pulse Resp BP Pulse Ox Pulse Ox 09/09/16 05:55 15 09/09/16 03:38 98.3 F 85 15 97/64 98 09/09/16 03:23 15 09/08/16 23:55 98.2 F 64 17 102/60 97 09/08/16 20:00 98.2 F 76 18 100/58 100 09/08/16 16:00 98.0 F 60 20 107/67 99 09/08/16 12:40 98 F 60 20 103/55 99 09/08/16 11:10 98.4 F 09/08/16 10:39 64 21 113/81 100 09/08/16 10:24 75 17 119/76 100 09/08/16 10:09 68 19 88/59 100 09/08/16 09:10 68 16 107/063 99 General appearance: normal weight, no acute distress - Cardiovascular Cardiovascular exam: Present: regular rate and rhythm - GI/Abdominal GI/Abdominal exam: Present: soft. Absent: guarding, tenderness, rebound - Extremities Exam Extremities exam: Absent: calf tenderness - Back Exam Back exam: Absent: CVA tenderness (L), CVA tenderness (R) - Neurological Exam Neurological exam: Present: alert, oriented X3 - Psychiatric Psychiatric exam: Present: normal affect, normal mood Results - Labs CBC & BMP: 09/08/16 05:53 09/08/16 05:53
[2016-09-09] MEDS ORDERED: LACTOBACILLUS ACIDOPHILUS/BULGARICUS CAPLET PO SCH (09:00)
--- NOTE | 2016-09-09 09:14 | Discharge Summary ---
Hospital Course - Hospital Course Hospital Course: Ms. Andrea is a 26-year-old -[place] female admitted with pelvic and abdominal pain. CT of the abdomen showed trace amount of inflammation of the lower right paracolic gutter with some fluid. Was questionable for PID versus colitis versus mesenteric adenitis versus acute early appendicitis. Dr. Smith from surgery was consulted and he felt this was not indicative of an appendicitis. Dr. Claros from GI was consulted and he performed a C scope on 04/2017 where he found mild erythema in a patchy distribution to the colon. He did take multiple biopsies to rule out Crohn's, etc. He recommended low lactose diet and started her on some Bacid as a probiotic. He is also written an antispasmodic medication every 6 hours scheduled and instructed to steer clear of narcotics. She will need to call his office in 2 weeks for biopsy results and recommendations to follow per Dr. Claros. Dr. Albright from [facility] was consulted and she performed a pelvic ultrasound that showed moderate fully free fluid in the pelvic with simple bilateral ovarian cysts and an additional 19 mm hemorrhagic cyst or solid mass in the right ovary. Patient's gonorrhea/ Chlamydia results are pending. She is to follow-up with Dr. Albright in 4-6 weeks with a follow-up ultrasound. She is feeling much better today with no complaints of abdominal pain and is tolerating a diet. Patient did have a UTI growing gram-negative rods she will be discharged home on Flagyl and tramadol for pain. - Time spent with patient Time with patient DS: Less than 30 minutes Specialty Discharge - Follow Up or Referrals Follow up with: Ruthy Jaarmillo MD [Physician] - (follow up in four to six weeks with a pelvic ultrasound.) Discharge Plan - Discharge Data Disposition: Disch To Home/Self Care Condition at Discharge: Stable Discharge Diet: other (Low lactose diet) Activity: resume usual activities as tolerated Hygiene: may shower Driving: no restrictions Contact your physician if you experience:: Difficulty voiding, Nausea/Vomiting, pain uncontrolled by pain medications - Discharge Medications New Hyoscyamine Tab [Levsin Tab] 0.125 mg PO Q6H #90 tablet Lactobacillus Acidoph/Bulgar [Bacid] 2 caplet PO DAILY #60 caplet metroNIDAZOLE TAB [Flagyl Cap/Tab] 500 mg PO TID #21 tablet Tramadol HCl [Tramadol Tab] 50 mg PO Q4H PRN #30 tablet PRN Reason: Pain Continue Labetalol Tab [Trandate Tab] 100 mg PO BID - Follow Up or Referral Follow Up: Ruthy Jaramillo MD [Physician] - (follow up in four to six weeks with a pelvic ultrasound.) Edward Claros MD [Physician] - (Call his office in 2 weeks with biopsy results and recommendations for follow-up) - Forms/Instructions Exam - Constitutional Vitals: Period Temp Pulse Resp BP Sys/Allison Pulse Ox Last 24 Hr 98 F-98.4 F 60-85 15-21 88-119/53-063 97-100 Exam: 26-year-old -[place] female, no acute distress Chest clear CV regular rate and rhythm Abdomen soft and nontender Extremities no edema Discharge Results Labs on day of discharge: Preliminary micro results at discharge 09/07/16 Unknown Urine Culture - Preliminary Urine,Voided Gram Negative Rods DS: Provider Date of admission: 09/07/16 14:43 Primary care physician: . No PCP Attending physician on admission: Lobito Cuba CNP Consults: 09/07/16 16:40 Consult to Physician [CONS] Routine Comment: right lower quadrant pain Consulting Provider: Kirit Smith Consulting Provider Notified: Yes Person Notified: DR. SMITH Date Notified: 09/07/16 Time Notified: 17:54 Consult Notification Comment: DR. OLIVARES CELL PHONE CALLED AND NOTIFIED OF CONSULT Consult to Physician [CONS] Routine Comment: right lower quadrant pain Consulting Provider: Edward Claros Consulting Provider Notified: Yes 09/07/16 18:33 Consult to Physician [CONS] Routine Comment: Consulting Provider: Ruthy Jaramillo Consulting Provider Notified: Yes Consult to Specialist Group: OBGYN When should Consulting Provider be notified: Now Person Notified: Dr. Albright Date Notified: 09/08/16 Time Notified: 08:17 Consult Notification Comment: Patient with abdominal pain lower abdomen mostly on the right with CT changes suggestion pelvic inflammatory disease consider the possibility of endometriosis Discharging clinician: SOY Mae Expected date of discharge: 09/09/16
--- NOTE | 2016-09-09 10:24 | Gastrointestinal Progress Note ---
Assessment and Plan (1) Periumbilical pain Status: Acute Assessment and plan: This pain that the patient has had over the last 1 year is somewhat bizarre. It is not classically localizing to any one particular area which makes me believe that it is secondary to spasm in the bowel--she does not have an elevation in white blood cell count but she also does not have diarrhea or constipation which would lend itself to diagnosis of irritable bowel syndrome. She does have some reflux symptoms and we will treat these with acid blocking medications but I suspect this is not the cause for her periumbilical pain nor his gallbladder typically referred into this area. CT scan fails to show any thickening around the appendix and the white count is within normal limits. She is relatively young for ischemic bowel. Given the distribution of the pain and the fact that there are lymph nodes around the right lower quadrant as well as inflammation possibly in the pericolic gutter near the ascending colon I will perform colonoscopy tomorrow to further identify any colitis/Crohn's that might be present. I do note again the patient does not have diarrhea but does feel better after passage of stool. The patient does not have cervical motion tenderness and so this is likely not pelvic inflammatory disease although this still remains in the differential. 09/08/16--colonoscopy demonstrated the following: Mild erythema in a patchy distribution through the colon--likely prep artifact, but may represent underlying colitis, biopsies pending. Patient did have some lymphoid hyperplasia in her terminal ileum which was biopsied to ensure this was not Crohn's. It is possible that this could be a source for the lymph node enlargement if she is getting chronic small bowel overgrowth of bacteria. I do note that even after being started on high-powered antibiotics her white count is virtually identical to what it was yesterday. Given the findings on the colonoscopy I have put her on a low lactose diet, started her on some Bacid as a probiotic and I am writing her for some antispasmodic medication in the form of Levsin 0.125 mg every 6 hours scheduled. We will see if this helps out with the pain. I would steer clear of use of narcotics if at all possible they tend not to be helpful for chronic pain and can be addicting. 09/09/16--the patient is doing better at this point. Again in my mind this may be pelvic inflammatory disease versus a variant of small bowel overgrowth. Biopsies looking for colitis are pending but I doubt these will be positive. She is doing adequately on a combination of Flagyl Levsin and Bacid as a probiotic. I will see her back in the office in 4-6 weeks and will see how she is doing. I will call her with biopsy results when these become available. She is safe for discharge in my opinion as her pain is completely improved. Genevieve Zimmerman was kind enough to write the prescriptions for me. Current Visit: Yes (2) Abnormal CT scan, gastrointestinal tract Status: Acute Assessment and plan: As mentioned above the patient does have subcentimeter lymph node enlargement on the right side of the colon with a slight amount of fluid around the colon in this region as well. This is concerning for inflammatory bowel disease versus colitis, we will proceed with colonoscopy tomorrow to evaluate further. Risks and benefits of the procedure were discussed with the patient and include but are not limited to: Bleeding, infection, perforation, cardiac and pulmonary compromise. 09/08/16--no gross evidence of Crohn's on today's colonoscopy. This may represent reactive inflammation from small bowel overgrowth of bacteria as evidenced by the terminal ileum lymphoid hyperplasia. She is currently getting antibiotics and her white count is not changed. I am trying some symptomatic medication in the form of probiotics and Levsin to see if this alters her pain threshold. Biopsies are pending. 09/09/16--biopsies are still pending, we will call patient with these when they become available. No gross evidence of Crohn's disease. Current Visit: Yes (3) GERD (gastroesophageal reflux disease) Status: Acute Assessment and plan: This is been going on for several years and is likely not related to the above symptoms. 09/08/16--Protonix continues for reflux symptoms. 09/09/16--continue Protonix for reflux symptoms 40 mg prior to suppertime. Current Visit: Yes Gastroenterology - PN: Subj Interval history: This strange intermittent pain seems a good deal better--I am not sure whether this is because she is better spontaneously or because we treated any one particular illness. She is on antibiotics and is been given a prescription of these to take along with the Bacid and Levsin. We will be calling the patient with the biopsy results from the colonoscopy in the near future. I would like to follow her up in my office in 4-6 weeks to see how she is doing at that point. I reemphasized to the patient that I do not believe that this is gallbladder disease. She is certainly safe for discharge in my opinion. Exam (Progress Note) - Constitutional Vitals: Period Temp Pulse Resp BP Sys/Allison Pulse Ox Last 24 Hr 98 F-98.4 F 60-85 15-21 97-119/53-81 97-100 General appearance: mild distress - Eye Eye exam: Present: EOMI - Respiratory Respiratory exam: Present: clear to auscultation bilaterally - Cardiovascular Cardiovascular exam: Present: regular rate and rhythm - GI/Abdominal GI/Abdominal exam: Present: normal bowel sounds, soft. Absent: distended, tenderness, rebound - Extremities Exam Extremities exam: Present: normal inspection - Neurological Exam Neurological exam: Present: alert, oriented X3 - Psychiatric Psychiatric exam: Present: normal affect, normal mood - Skin Skin exam: Present: warm Results - Labs CBC & BMP: 09/08/16 05:53 09/08/16 05:53 Specialty Discharge - Follow Up or Referrals Follow up with: Ruthy Jaramillo MD [Physician] - (follow up in four to six weeks with a pelvic ultrasound.) Edward Claros MD [Physician] - (Call his office in 2 weeks with biopsy results and recommendations for follow-up)
[2016-09-09 12:05] VITALS: BP 115/87
--- NOTE | 2016-09-15 10:19 | Pathology Report from [facility] ---
ACCESSION # : [id number] PATIENT NAME : Angelic Bedoya ORDERING DR : Edward Claros MD CLINICAL HX: Abd pain POST-OP DX: Same SPECIMEN INFO: #1 Terminal ileum BXS #2 Cecum/ascending BXS #3 Descending/ sigmoid BXS GROSS DESCRIPTION: #1 Received in formalin labeled with the patient's name "ANGELIC BEDOYA and #1" consists of fragments of banks mucosal tissue collectively measuring 0.8 x 0.4 cm. Submitted in cassette #1.#2 Received in formalin labeled with the patient's name "ANGELIC BEDOYA and #2" consists of fragments of fragments of banks tissue collectively measuring 0.7 x 0.5 cm. Submitted in cassette #2.#3 Received in formalin labeled with the patient's name "ANGELIC BEDOYA and #3" consists of three pink-banks mucosal tissue fragments collectively measuring 0.6 x 0.4 cm. Submitted in cassette #3. DIAGNOSIS FOR ANGELIC BEDOYA: #1 1 TERMINAL ILEUM BIOPSIES: Marked lymphoid hyperplasia; no granulomas or tumor seen. Referred to [facility] to exclude lymphoma.#2 CECUM/ASCENDING BIOPSIES: Superficial chronic inflammation, benign lymphoid aggregates, focal superficial neutrophilic debris.#3 DESCENDING/ SIGMOID BIOPSIES: Superficial chronic inflammation, benign lymphoid aggregates, focal superficial neutrophilic debris. Favor self-limited colitis.The following is the consultation report from Vance Delaney MD., PhD., [facility], [place], [place] :#1 BIOPSY, TERMINAL ILEUM: Reactive small intestinal mucosa with lymphoid hyperplasia and no evidence of lymphoma. See diagnostic note.DIAGNOSTIC NOTE: The findings are in agreement with the primary pathologist's diagnosis and consistent with reactive small intestinal mucosa with lymphoid hyperplasia. Several secondary follicles are seen. Although marginal zone is slightly expanded, there is no CD43 co-expression. Cd138 positive plasma cells are polyclonal. Therefore, there is no identifiable evidence of lymphoma. Clinical correlation is recommended. See microscopic description. SERVICE DATE: 09/08/2016 REPORT DATE: 09/14/2016 PATHOLOGIST: Alex Syed
== END 2016-09-09 12:30 | disposition home or self-care (01) | DRG 758 ==
LOC: N.ED 10:22 → N.EDINP 14:43 → N.2E 16:05
PROVIDERS: ADMIT Nurse Practitioner; ATTEND Nurse Practitioner
PROC: COLONBX (2016-09-08 08:35)